=== PATIENT | female | born 1960 | race Hispanic/Latino ===

== ENCOUNTER 2016-06-03 07:33 | Emergency (ER) | payer SELFPAY ==
[~2016-06-03] VITALS: Ht 152.4 cm; Wt 61.3 kg
[~2016-06-03 07:33] MED LIST: AMOXICILLIN500 MG OR; ANTIVERT PO; AUGMENTIN500 MG OR; BENADRY2 EX; BENADRYL 50MG C50 MG OR; BENADRYL 50MG C50 MG PO; DOXYCYC MONO100 MG OR; FLAGYL500 MG OR; FLEXERIL PO; FLEXERIL10 MG PO; FLONASE SPRAY50 MCG; HYDROCO/APAP1 TA9 PO; MEDDOSEPAK OR; MEDDOSEPAK PO; MELOXICAM7.5 MG PO; MOTRIN800 MG PO; NAPROSYN500 MG OR; NAPROSYN500 MG PO; NO; NO HOME MEDS; ONDANSETRON4 MG PO; PEPCID20 MG PO; PREVACID30 M2 PO; ROBITUSSIN AC10 ML OR; TRAMADOL HCL50 MG PO; TRAMADOL HYDROC50 MG PO; ULTRAM50 M1 PO; ZOFRAN4 MG OR; [UNRECOGNIZED DRUG - REMARK]
[2016-06-03] MEDS ORDERED: PERCOCET 5/325M1 TAB PO (07:47)
[2016-06-03] MEDS ORDERED: MOTRIN800 MG PO (07:47)
[2016-06-03 08:59] VITALS: BP 148/78
== END 2016-06-03 08:59 | disposition home or self-care (01) | DRG 563 ==
LOC: ED 07:33
DX: S93.402A Sprain of unspecified ligament of left ankle, initial encounter (principal); X50.0XXA Overexertion from strenuous movement or load, initial encounter

== ENCOUNTER 2017-10-11 07:41 | Emergency (ER) | payer SELFPAY ==
[~2017-10-11] VITALS: Ht 152.4 cm; Wt 59.0 kg
[~2017-10-11 07:41] MED LIST changes: +PERCOCET 5/325M1 TAB PO
[2017-10-11 08:28] LABS: URINE BILIRUBIN - DIPSTICK NEGATIVE (NEGATIVE); URINE BLOOD DIPSTICK NEGATIVE (NEGATIVE); URINE GLUCOSE - DIPSTICK NEGATIVE (NEGATIVE); URINE KETONE NEGATIVE (NEGATIVE); URINE LEUK ESTERASE NEGATIVE (NEGATIVE); URINE PH 5.5 (4.5-8.0); URINE PROTEIN - DIPSTICK NEGATIVE (NEG-TRACE); URINE SPECIFIC GRAVITY >=1.030
[2017-10-11 08:32] LABS: HEMATOCRIT 37.5 % (37.0-47.0); HEMOGLOBIN 12.4 g/dl (12.0-16.0); IMMATURE GRANULOCYTES 0.3 % (0.0-5.0); MEAN CELL VOLUME 93.8 fL CALC (80.0-100.0); MEAN CORPUSCULAR HGB CONC 33.1 g/L CALC (32.0-36.0); NEUT# 7.35 thou/uL (2.00-7.15); RED CELL DISTRI WIDTH 13.4 % (11.5-15.5)
[2017-10-11 08:33] LABS: URINE CLARITY SL CLOUDY; URINE COLOR DK. YELLOW; URINE NITRITE - DIPSTICK POSITIVE (Negative)
[2017-10-11 08:34] LABS: URINE BACTERIA MANY hpf; URINE WBC 0-2 WBC/hpf (0-5)
[2017-10-11 08:47] LABS: ALBUMIN 4.5 g/dL (3.2-5.0); ALKALINE PHOSPHATASE 128 u/l (38-126); AMYLASE 47 u/l (30-110); ANION GAP 16 (6-22 (CALC)); BILIRUBIN, TOTAL 0.5 mg/dL (0.0-1.4); BUN 19 mg/dL (7-17); BUN/CREATININE RATIO 35 (12-20 (CALC)); CARBON DIOXIDE 24 mmol/l (22-30); CHLORIDE 110 mmol/l (95-108); CREATININE 0.5 mg/dL (0.5-1.0); GFR > 60 ML/MIN (>=60 (CALC)); GFR FOR AFR.AMER. > 60 ML/MIN (>=60 (CALC)); LIPASE 68 u/l (23-300); SGOT/AST 40 u/l (14-36); SGPT/ALT 40 u/l (9-52); SODIUM 145 mmol/l (137-146); TOTAL PROTEIN 7.9 g/dL (6.3-8.2)
[2017-10-11] MEDS ORDERED: CIPROFLOXACN500 MG PO (12:33)
[2017-10-11] MEDS ORDERED: ZOFRAN ODT4 MG PO (12:33)
[2017-10-11 13:05] VITALS: BP 166/89
== END 2017-10-11 13:05 | disposition home or self-care (01) | DRG 690 ==
LOC: ED 07:41
PROVIDERS: Emergency Medicine
DX: N39.0 Urinary tract infection, site not specified (principal); B96.20 Unspecified Escherichia coli [E. coli] as the cause of diseases classified elsewhere

== ENCOUNTER 2017-10-30 11:07 | Emergency (ER) | payer SELFPAY ==
[~2017-10-30] VITALS: Ht 152.4 cm; Wt 59.5 kg
[~2017-10-30 11:07] MED LIST changes: +CIPROFLOXACN500 MG PO; +ZOFRAN ODT4 MG PO
[2017-10-30] MEDS ORDERED: ASPERCREME LIDOCA41 TOP (11:39)
[2017-10-30] MEDS ORDERED: MOTRIN400 MG PO (11:39)
[2017-10-30] MEDS ORDERED: VOLTAREN1%GEL TOP (11:39)
[2017-10-30 12:16] VITALS: BP 125/88
== END 2017-10-30 12:21 | disposition home or self-care (01) | DRG 538 ==
LOC: ED 11:07
DX: S76.011A Strain of muscle, fascia and tendon of right hip, initial encounter (principal); M54.41 Lumbago with sciatica, right side; X58.XXXA Exposure to other specified factors, initial encounter

== ENCOUNTER 2018-11-01 02:49 | Emergency (ER) | payer SELFPAY ==
[~2018-11-01] VITALS: Ht 152.4 cm; Wt 59.1 kg
[~2018-11-01 02:49] MED LIST changes: +ASPERCREME LIDOCA41 TOP; +MOTRIN400 MG PO; +VOLTAREN1%GEL TOP
[2018-11-01 03:17] LABS: HEMATOCRIT 33.3 % (37.0-47.0); IMMATURE GRANULOCYTES 0.3 % (0.0-5.0); MEAN CELL VOLUME 92.2 fL CALC (80.0-100.0); MEAN CORPUSCULAR HGB 30.5 pG CALC (26.0-32.0); NEUT# 6.78 thou/uL (2.00-7.15); RED BLOOD COUNT 3.61 mill/uL (4.20-5.60); RED CELL DISTRI WIDTH 13.6 % (11.5-15.5)
[2018-11-01 03:27] LABS: ALBUMIN 4.3 g/dL (3.2-5.0); ALKALINE PHOSPHATASE 115 u/l (38-126); ANION GAP 14 (6-22 (CALC)); BILIRUBIN, TOTAL 0.7 mg/dL (0.0-1.4); BUN 16 mg/dL (7-17); BUN/CREATININE RATIO 29 (12-20 (CALC)); CARBON DIOXIDE 25 mmol/l (22-30); CHLORIDE 104 mmol/l (95-108); CREATININE 0.6 mg/dL (0.5-1.0); GFR > 60 ML/MIN (>=60 (CALC)); GFR FOR AFR.AMER. > 60 ML/MIN (>=60 (CALC)); POTASSIUM 3.5 mmol/l (3.5-5.1); SGOT/AST 27 u/l (14-36); SODIUM 140 mmol/l (137-146); TOTAL PROTEIN 7.9 g/dL (6.3-8.2)
[2018-11-01] MEDS ORDERED: CLARITHROMYCIN500 MG PO (04:04)
[2018-11-01 05:15] VITALS: BP 120/65
== END 2018-11-01 05:15 | disposition home or self-care (01) | DRG 203 ==
LOC: ED 02:49
PROVIDERS: Family Medicine
DX: J20.9 Acute bronchitis, unspecified (principal)

== ENCOUNTER 2019-01-19 12:26 | Emergency (ER) | payer SELFPAY ==
[~2019-01-19] VITALS: Ht 152.4 cm; Wt 59.0 kg
[~2019-01-19 12:26] MED LIST changes: +CLARITHROMYCIN500 MG PO
[2019-01-19 13:23] LABS: HCG SERUM/URINE (NEG/POS) NEGATIVE (NEGATIVE)
[2019-01-19] MEDS ORDERED: MEDDOSEPAK PO (14:07)
[2019-01-19] MEDS ORDERED: TESSALON PERLE100 MG PO (14:07)
[2019-01-19] MEDS ORDERED: VENTOLIN HFA IN (14:07)
[2019-01-19 14:15] VITALS: BP 131/74
== END 2019-01-19 14:15 | disposition home or self-care (01) | DRG 204 ==
LOC: ED 12:26
DX: R05 Cough (principal); R51 Headache

== ENCOUNTER 2019-02-13 | Emergency (ER) | payer SELFPAY ==
[~2019-02-13] MED LIST changes: +TESSALON PERLE100 MG PO; +VENTOLIN HFA IN
[2019-02-13] MEDS ORDERED: ULTRAM50 MG PO (10:44)
== END 2019-02-13 11:34 | disposition home or self-care (01) | DRG 552 ==
DX: M54.5 Low back pain (principal); S70.02XA Contusion of left hip, initial encounter; S70.01XA Contusion of right hip, initial encounter; W18.31XA Fall on same level due to stepping on an object, initial encounter; Y92.009 Unspecified place in unspecified non-institutional (private) residence as the place of occurrence of the external cause

== ENCOUNTER 2019-03-11 14:46 | Inpatient (IN) | payer SELFPAY ==
[~2019-03-11] VITALS: Ht 152.4 cm; Wt 62.0 kg
[2019-03-11] VITALS (7 sets, daily range): BP systolic 97–144; BP diastolic 58–88
[~2019-03-11 14:46] MED LIST changes: +ULTRAM50 MG PO
--- NOTE | 2019-03-11 14:50 | NUR ---
PT RECEIVED IN LOBBY LEANING TO LT SIDE, AND LT FACIAL DROOP NOTED. PT STATES SHE HAS "BEEN WEEK X3 DAYS"
--- NOTE | 2019-03-11 15:23 | NUR ---
PT UPDATED ON POC WITH INTERPRETOR. PT STATES UNDERSTANDING. PT ALERT AND ORIENTED X3. PT ALSO REPORTS SHE HAD LT SIDED CP THREE DAYS AGO. WITH ONSET OF LT SIDED WEAKNESS
--- NOTE | 2019-03-11 15:29 | NUR ---
DR FIERRO ON VIA TELENEUROLOGY TO ASSESS PT
[2019-03-11 15:39] LABS: ALBUMIN 4.7 g/dL (3.2-5.0); ALKALINE PHOSPHATASE 135 u/l (38-126); ANION GAP 15 (6-22 (CALC)); BUN 16 mg/dL (7-17); BUN/CREATININE RATIO 33 (12-20 (CALC)); CARBON DIOXIDE 23 mmol/l (22-30); CHLORIDE 104 mmol/l (95-108); CREATININE 0.5 mg/dL (0.5-1.0); ETHYL ALCOHOL 0 mg/dl (0-30); GFR > 60 ML/MIN (>=60 (CALC)); GFR FOR AFR.AMER. > 60 ML/MIN (>=60 (CALC)); POTASSIUM 3.8 mmol/l (3.5-5.1); SGOT/AST 34 u/l (14-36); SODIUM 139 mmol/l (137-146); TOTAL PROTEIN 8.4 g/dL (6.3-8.2)
[2019-03-11 15:40] LABS: BILIRUBIN, TOTAL 0.4 mg/dL (0.0-1.4)
[2019-03-11 15:43] LABS: HEMATOCRIT 38.3 % (37.0-47.0); HEMOGLOBIN 12.7 g/dl (12.0-16.0); IMMATURE GRANULOCYTES 0.3 % (0.0-5.0); MEAN CELL VOLUME 91.6 fL CALC (80.0-100.0); MEAN CORPUSCULAR HGB 30.4 pG CALC (26.0-32.0); MEAN CORPUSCULAR HGB CONC 33.2 g/L CALC (32.0-36.0); NEUT# 4.14 thou/uL (2.00-7.15); RED BLOOD COUNT 4.18 mill/uL (4.20-5.60); RED CELL DISTRI WIDTH 13.2 % (11.5-15.5)
[2019-03-11 15:52] LABS: ACT PARTIAL THROMBO TIME 27.1 SECONDS (20.0-32.5); INTERNATIONAL NORMALIZED RATIO 0.9 RATIO (0.7-1.3); PROTHROMBIN TIME 9.8 SECONDS (9.0-12.5)
--- NOTE | 2019-03-11 16:20 | NUR ---
PT SITTING UP IN BED IN NO DISTRESS.VSS. NOTED TO BE USING CELLPHONE AND HOLDON TO LT EAR WITOUT DIFFICULTY
--- NOTE | 2019-03-11 17:14 | NUR ---
pt resting typing on phone with both hands. updated on poc. speech appropriate. pt alert and oriented x4.
--- NOTE | 2019-03-11 18:30 | NUR ---
PT WITH NORMAL SWALLOW, NO DIFFICULTY, GIVEN FOOD TRAY. PT SITTING UP I BED FEEDING SELF WITHOUT DIFFICULTY.PT AWARE OF PENDING ADMIT AND AWAITING BE IN ICU
--- NOTE | 2019-03-11 19:21 | NUR ---
CALLED REPORT TO ICU , UPDATED AYAN ORR RN
--- NOTE | 2019-03-11 19:30 | NUR ---
PATIENT TO FLOOR VIA STRETCHER, WITH RN, ON MONITOR
--- NOTE | 2019-03-11 19:38 | NUR ---
PATIENT IS ALERT AND ORIENTED X3. ON ROOM AIR, NO SOB NOTED. C/O OF TIREDNESS AND WEAKNESS ESPECIALLY TO LEFT SIDE. HEAD TO TOE NURSING ASSESSMENT COMPLETED, NIH SCORE IS 4 FOR LUE AND LLE DRIFT TO BED, RUE ATAXIA, DECREASED SENSATION ON LEFT SIDE. PATIENT'S FOOD BEVERAGE SUPERVISOR ARE BILATERALLY WEAK MORE ON THE LEFT. REPORTS HEADACHE, WILL PROVIDE TYLENOL. ALL ADMISSION COMPLETED. DENIES TAKING MEDIACTIONS. RAC 20 G IV SALINE LOCKED, FLSUHES PROPERLY. POC FOR TONIGHT DISCUSSED. NKA. [place] ISLANDER SPEAKING AND UNDERSTANDS SOME VINCENTIAN AND ABLE TO SPEAK SOME VINCENTIAN BUT NOT FLUENT. 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 LIVES BY HERSELF, WOULD LIKE PNEUMONIA VACCINE. REPORTS SHE WAS HERE ABOUT TWO WEEKS AGO FROM A SYNCOPAL EPISODE FROM A DOG TRIPPING HER. LAST BM REPORTED 03/08/19, REPORTS SHE HAS A LOW APPETITE AND HAS A BM ONCE/WEEK AND THAT'S HER NORMAL. CALL LIGHT WITHIN REACH. AFEBRILE. SELF REPOSITIONS.
--- NOTE | 2019-03-11 20:18 | NUR ---
PATIENT ABLE TO SWALLOW HER MEDICATIONS WITHOUT DIFFICULTY. PASSCODE AND ICU PHONE NUMBER PROVIDED.
--- NOTE | 2019-03-11 20:52 | NUR ---
PT TALKING ON THE PHONE.
--- NOTE | 2019-03-11 21:15 | NUR ---
PT HAS VISITORS AT BEDSIDE.
--- NOTE | 2019-03-11 22:20 | NUR ---
MEND SCORED FOR R AND L HAND TO NOSE LIMB ATAXIA, DRIFT ON R AND L EXTREMITIES, DRIFT ON LLE, STILL HAS DECREASED SENSATION. PT IS DROWSY, REPORTS SHE WOULD LIKE TO SLEEP, SHE IS TIRED.
--- NOTE | 2019-03-11 22:40 | NUR ---
CALLED AND SPOKE TO BRENDEN TO ASK ABOUT STROKE PROTOCOL ORDERS AND WHAT SHE WANTED ORDERED.
--- NOTE | 2019-03-11 23:30 | NUR ---
PT IS DROWSY. HAS TO BE ASKED TO WAKE UP TO PARTICIPATE FOR TEST. MEND SCORED FOR RUE AND LUE DRIFT, DRIFT RLE, AND REPORTS HER DECREASED SENSATION IS GETTING BETTER.
[2019-03-11 23:36] LABS: ETHYL ALCOHOL 0 mg/dl (0-30)
[2019-03-12] VITALS (11 sets, daily range): BP systolic 94–152; BP diastolic 57–94
--- NOTE | 2019-03-12 00:50 | NUR ---
WHEN ATTEMPTING TO PERFORM MEND EXAM ON PT SHE REFUSES AND REPORTS SHE WOULD LIKE TO SLEEP, SHE IS ABLE TO TELL ME HER AGE AND CURRENT MONTH. SPEECH REMAINS CLEAR SINCE BASELINE, NO DROOP SINCE BASELINE.
--- NOTE | 2019-03-12 02:14 | NUR ---
PT LAYS WITH EYES CLOSED. NO ACUTE DISTRESS SHOWN. CALL LIGHT WITHIN REACH.
--- NOTE | 2019-03-12 04:23 | NUR ---
PATIENT LAYS WITH HOB 30 DEGREES, HAS BEEN RESTING WITH EYES CLOSED BUT WAS ABLE TO AWAKE MORE, SIT UP. C/O OF PAIN ON LEFT SIDE CHEST PAIN FOR WHICH SHE HAS BEEN HAVING SINCE 3 DAYS AGO. PT SPEAKS CLEARLY, NO DROOP NOTICED. ABLE TO MOVE ALL EXTREMITIES. HAS RECEIVED PHONE CALLS ON PHONE, SHE HANGS THEM UP. CALL LIGHT WITHIN REACH.
--- NOTE | 2019-03-12 05:09 | NUR ---
PT ASSITED TO BATHROOM. HAS WEAK UNSTEADY GAIT. COOPERATES FOR MEND EXAM, REPORTS HER SENSATION IS NORMAL BILATERALLY. STILL DRIFTS BILAT UE, LLE, AND NO DROOP NOTICED. ABLE TO SPEAK CLEARLY. CONVERSATES BAUT HER DAUGHTERS NOT HAVING TIME TO COME AND SEE HER.
--- NOTE | 2019-03-12 06:45 | NUR ---
RECIEVED REPORT FROM GRANT MARTIN. ASSUMED PT CARE.
[2019-03-12 07:15] LABS: URINE BILIRUBIN - DIPSTICK NEGATIVE (NEGATIVE); URINE COLOR YELLOW; URINE GLUCOSE - DIPSTICK NEGATIVE (NEGATIVE); URINE KETONE NEGATIVE (NEGATIVE); URINE UROBILINOGEN - DIPSTICK 0.2 E.U./dL (0.2)
[2019-03-12 07:19] LABS: BARBITURATES NEGATIVE (NEGATIVE); COCAINE NEGATIVE (NEGATIVE); METHADONE NEGATIVE (NEGATIVE); OXCYCODONE NEGATIVE (NEGATIVE); TETRAHYDROCANNABIONOL NEGATIVE (NEGATIVE); TRICYLIC ANTIDEPRESSANTS NEGATIVE (NEGATIVE)
[2019-03-12 07:22] LABS: URINE BACTERIA MANY hpf
[2019-03-12 07:25] LABS: URINE BLOOD DIPSTICK NEGATIVE (NEGATIVE); URINE LEUK ESTERASE NEGATIVE (NEGATIVE); URINE NITRITE - DIPSTICK POSITIVE (Negative); URINE PROTEIN - DIPSTICK NEGATIVE (NEG-TRACE)
--- NOTE | 2019-03-12 07:30 | NUR ---
DIETARY ON UNIT, BREAKFAST TRAY SET UP.
--- NOTE | 2019-03-12 08:30 | NUR ---
PT AT BEDSIDE FOR EVAL.
--- NOTE | 2019-03-12 08:45 | NUR ---
OT AT [facility] FOR EVAL.
--- NOTE | 2019-03-12 09:00 | NUR ---
CONSULT PLACED FOR CM, FOR FINANCIAL CONCERNS AT PT REQUEST.
--- NOTE | 2019-03-12 09:15 | NUR ---
FAMILY ARRIVED AT BEDSIDE.
--- NOTE | 2019-03-12 09:18 | NUR ---
BRI IN MRI NOTIFY THAT MRI MACHINE IS DOWN, MRI'S ARE UNAVAILABLE AT THIS TIME. DR. SONJA LEMUS.
--- NOTE | 2019-03-12 09:45 | NUR ---
DR. CASILLAS AT BEDSIDE FOR ASSESSMENT AND TO DISCUSS PLAN OF CARE, NEW ORDERS RECIEVED. FAMILY REMAINS AT BEDSIDE.
--- NOTE | 2019-03-12 10:00 | NUR ---
PT ASSISTED TO BATHROOM, SLOW STEADY GAIT, SBA.
--- NOTE | 2019-03-12 10:45 | NUR ---
US HERE FOR ECHO.
--- NOTE | 2019-03-12 11:15 | NUR ---
LAWSON FROM BUSINESS OFFICE AT FOR FINANCIAL ASSISTANCE AND ASHLEY NIX AT BEDSIDE.
--- NOTE | 2019-03-12 11:33 | NUR ---
PHARMACY AT BEDSIDE FOR MEDICATION CONSULTATION.
--- NOTE | 2019-03-12 12:45 | NUR ---
PT OFF UNIT TO MRI VIA WC WITH VOLUNTEER.
--- NOTE | 2019-03-12 13:18 | NUR ---
AL FROM MRI CALLED PT REFUSING MRI.
--- NOTE | 2019-03-12 13:24 | NUR ---
PT BACK ON UNIT FROM MRI.
--- NOTE | 2019-03-12 13:33 | NUR ---
PT STATED "SHE WAS NOT GOING IN THAT MACHINE, F NO" IM GOING TO SLEEP.
--- NOTE | 2019-03-12 14:11 | NUR ---
PT RESTING IN BED WITH EYES CLOSED, CALL LIGHT IN REACH. WILL MONITOR.
--- NOTE | 2019-03-12 15:15 | NUR ---
UPON ENTERING PT ROOM PT WAS ON PERSONAL CELL PHONE CUSSING, AFTER PT WAS OFF PHONE, SCHEDULED MEDICATION OFFERED AND REFUSED. CALL LIGHT IN REACH. WILL MONITOR.
[2019-03-12] MEDS ORDERED: ASPIRIN CHEWABL81 MG PO (15:34)
[2019-03-12] MEDS ORDERED: ATORVASTATIN CA40 MG PO (15:34)
--- NOTE | 2019-03-12 15:50 | NUR ---
IV site discontinued, cath intact. No edema , no redness, voices no discomfort.
--- NOTE | 2019-03-12 16:16 | NUR ---
ATTEMPTED TO GO IN TO HELP PT GET DRESSED FOR DISCHARGE, PT TOLD BOTTLE LABELER THAT THIS TAKE UP OPERATOR WAS DISCRIMANATORY AND WAS NOT TO COME IN ROOM. PRIMING POWDER PREMIX BLENDER GRANT PADILLA NOTIFIED, CARLOS. RN WENT IN TO EXPLAIN DISCHARGE INSTRUCTIONS.
--- NOTE | 2019-03-12 16:26 | NUR ---
Discharge instructions given. Patient verbalizes understanding of same. Discharged in stable condition via Wheelchair to Home with family. All belongings sent with pt.
--- NOTE | 2019-03-14 14:30 | NUR ---
URINE CULTURE RESULTS GIVEN TO KYARA ACEVEDO, PATIENT SEEN FOR CVA. NO NEW ORDERS AT THIS TIME.
--- NOTE | 2019-03-16 11:40 | NUR ---
Attempted to call pt upon urine culture results to check and see how she was feeling. No success so I left a message to [employer] back. INTERPRETATIVE DANCER that was listed in pts profile is no longer at that location and pt has not been seen in about 2 yrs there.
== END 2019-03-12 16:26 | disposition home or self-care (01) | DRG 65 ==
LOC: ED 14:46 → ED-I 17:01 → ED 17:20 → ICU 17:21
PROVIDERS: ADMIT Internal Medicine; ATTEND Internal Medicine
DX: I63.9 Cerebral infarction, unspecified (principal); G81.94 Hemiplegia, unspecified affecting left nondominant side; R29.810 Facial weakness; R29.707 NIHSS score 7
CPT/HCPCS: J1650; Q9967

== ENCOUNTER → 2020-10-26 | Emergency (ER) | payer SELFPAY ==
[~2020-10-26] VITALS: Ht 152.4 cm; Wt 78.0 kg
[~2020-10-26] MED LIST changes: +ASPIRIN CHEWABL81 MG PO; +ATORVASTATIN CA40 MG PO; +DECADRON6 MG PO; +IBUPROFEN600 MG PO
[2020-10-26 18:59] VITALS: BP 118/75
== END | disposition home or self-care (01) | DRG 552 ==
LOC: ED 15:10
DX: M54.5 Low back pain (principal)

== ENCOUNTER 2020-11-15 10:49 | Emergency (ER) | payer SELFPAY ==
[~2020-11-15] VITALS: Ht 152.4 cm; Wt 59.1 kg
[2020-11-15] MEDS ORDERED: MOBIC7.5 M1 PO (13:49)
[2020-11-15] MEDS ORDERED: FLEXERIL5 M1 PO (13:49)
[2020-11-15 14:18] VITALS: BP 142/67
== END 2020-11-15 14:30 | disposition home or self-care (01) | DRG 552 ==
LOC: ED 10:49
DX: M54.5 Low back pain (principal)

== ENCOUNTER 2021-01-04 23:21 | Emergency (ER) | payer SELFPAY ==
[~2021-01-04] VITALS: Ht 152.4 cm; Wt 60.0 kg
[~2021-01-04 23:21] MED LIST changes: +FLEXERIL5 M1 PO; +MOBIC7.5 M1 PO
[2021-01-05 00:18] LABS: HEMATOCRIT 38.3 % (37.0-47.0); HEMOGLOBIN 12.3 g/dl (12.0-16.0); IMMATURE GRANULOCYTES 0.8 % (0.0-5.0); MEAN CORPUSCULAR HGB 31.7 pG CALC (26.0-32.0); MEAN CORPUSCULAR HGB CONC 32.1 g/dL CAL (32.0-36.0); NEUT# 8.57 thou/uL (2.00-7.15); RED BLOOD COUNT 3.88 mill/uL (4.20-5.60)
[2021-01-05 00:22] LABS: ALBUMIN 4.1 g/dL (3.2-5.0); ALKALINE PHOSPHATASE 129 u/l (38-126); AMYLASE 66 u/l (30-110); ANION GAP 12 (6-22 (CALC)); BUN 23 mg/dL (7-17); BUN/CREATININE RATIO 44 (12-20 (CALC)); CARBON DIOXIDE 27 mmol/l (22-30); CHLORIDE 106 mmol/l (95-108); CREATININE 0.5 mg/dL (0.5-1.0); GFR > 60 ML/MIN (>=60 (CALC)); GFR FOR AFR.AMER. > 60 ML/MIN (>=60 (CALC)); LIPASE 79 u/l (23-300); SGOT/AST 35 u/l (14-36); SODIUM 141 mmol/l (137-146); TOTAL PROTEIN 7.5 g/dL (6.3-8.2)
[2021-01-05 00:26] LABS: MEAN CELL VOLUME 98.7 fL CALC (80.0-100.0)
[2021-01-05 00:33] LABS: BILIRUBIN, TOTAL 0.6 mg/dL (0.0-1.4)
[2021-01-05 01:54] LABS: URINE BILIRUBIN - DIPSTICK NEGATIVE (NEGATIVE); URINE BLOOD DIPSTICK NEGATIVE (NEGATIVE); URINE COLOR YELLOW; URINE GLUCOSE - DIPSTICK NEGATIVE (NEGATIVE); URINE KETONE NEGATIVE (NEGATIVE); URINE LEUK ESTERASE NEGATIVE (NEGATIVE); URINE PH 7.5 (4.5-8.0); URINE PROTEIN - DIPSTICK NEGATIVE (NEG-TRACE); URINE UROBILINOGEN - DIPSTICK 0.2 E.U./dL (0.2)
[2021-01-05 01:57] LABS: URINE NITRITE - DIPSTICK NEGATIVE (Negative)
[2021-01-05] MEDS ORDERED: PROMETHAZINE HY25 M1 PO (02:14)
[2021-01-05 02:20] VITALS: BP 131/71
== END 2021-01-05 02:15 | disposition home or self-care (01) | DRG 392 ==
LOC: ED 23:21
PROVIDERS: Family Medicine
DX: K52.9 Noninfective gastroenteritis and colitis, unspecified (principal)
CPT/HCPCS: Q9967

== ENCOUNTER 2021-11-30 15:15 | Observation (INO) | payer SELFPAY ==
[~2021-11-30] VITALS: Ht 152.4 cm; Wt 62.0 kg
[~2021-11-30 15:15] MED LIST changes: +PROMETHAZINE HY25 M1 PO
--- NOTE | 2021-11-30 15:20 | NUR ---
PT TO ROOM VIA WC
[2021-11-30 15:44] LABS: HEMOGLOBIN 12.4 g/dl (12.0-16.0); MEAN CELL VOLUME 96.7 fL CALC (80.0-100.0); MEAN CORPUSCULAR HGB 31.6 pG CALC (26.0-32.0); MEAN CORPUSCULAR HGB CONC 32.6 g/dL CAL (32.0-36.0); NEUT# 3.26 thou/uL (2.00-7.15); RED BLOOD COUNT 3.93 mill/uL (4.20-5.60); RED CELL DISTRI WIDTH 13.3 % (11.5-15.5)
[2021-11-30 15:57] LABS: ALBUMIN 4.2 g/dL (3.2-5.0); ALKALINE PHOSPHATASE 146 u/l (38-126); ANION GAP 13 (6-22 (CALC)); BILIRUBIN, TOTAL 0.4 mg/dL (0.0-1.4); BUN 17 mg/dL (7-17); BUN/CREATININE RATIO 31 (12-20 (CALC)); CARBON DIOXIDE 24 mmol/l (22-30); CHLORIDE 109 mmol/l (95-108); CREATININE 0.5 mg/dL (0.5-1.0); GFR FOR AFR.AMER. > 60 ML/MIN (>=60 (CALC)); GFR OTHER RACES > 60 ML/MIN (>=60 (CALC)); POTASSIUM 4.1 mmol/l (3.5-5.1); SGOT/AST 43 u/l (14-36); SODIUM 143 mmol/l (137-146); TOTAL PROTEIN 7.6 g/dL (6.3-8.2)
[2021-11-30 16:04] LABS: INTERNATIONAL NORMALIZED RATIO 0.9 RATIO (0.7-1.3); PROTHROMBIN TIME 9.2 SECONDS (9.0-12.5)
[2021-11-30 16:10] VITALS: BP 178/91
[2021-11-30 16:16] VITALS: BP 178/80
--- NOTE | 2021-11-30 16:20 | NUR ---
Reassessment of patient completed. No distress noted.
[2021-11-30 16:46] VITALS: BP 178/154
--- NOTE | 2021-11-30 17:20 | NUR ---
4Reassessment of patient completed. No distress noted.
--- NOTE | 2021-11-30 18:21 | NUR ---
Reassessment of patient completed. No distress noted.
[2021-11-30 18:35] VITALS: BP 177/104
[2021-11-30 18:44] VITALS: BP 167/96
--- NOTE | 2021-11-30 18:59 | NUR ---
ESCORTED PATIENT TO 279 AND GAVE REPORT BEDSIDE TO JOANNE. VERBALIZED UNDERSTANDING. PATIENT ORIENTED AND ASSISTED INTO BED. DECLINES FURTHER NEEDS AT THIS TIME.
[2021-11-30 23:52] VITALS: BP 119/71
[2021-12-01 04:30] VITALS: BP 148/85
[2021-12-01 05:27] LABS: HEMATOCRIT 36.6 % (37.0-47.0); HEMOGLOBIN 11.7 g/dl (12.0-16.0); IMMATURE GRANULOCYTES 0.2 % (0.0-5.0); MEAN CELL VOLUME 98.9 fL CALC (80.0-100.0); MEAN CORPUSCULAR HGB 31.6 pG CALC (26.0-32.0); NEUT# 2.45 thou/uL (2.00-7.15); RED BLOOD COUNT 3.7 mill/uL (4.20-5.60); RED CELL DISTRI WIDTH 13.5 % (11.5-15.5)
[2021-12-01 05:39] LABS: ALBUMIN 3.5 g/dL (3.2-5.0); ALKALINE PHOSPHATASE 113 u/l (38-126); ANION GAP 11 (6-22 (CALC)); BILIRUBIN, TOTAL 0.4 mg/dL (0.0-1.4); BUN 16 mg/dL (7-17); BUN/CREATININE RATIO 34 (12-20 (CALC)); CARBON DIOXIDE 25 mmol/l (22-30); CHLORIDE 108 mmol/l (95-108); CREATININE 0.5 mg/dL (0.5-1.0); GFR FOR AFR.AMER. > 60 ML/MIN (>=60 (CALC)); GFR OTHER RACES > 60 ML/MIN (>=60 (CALC)); POTASSIUM 4.1 mmol/l (3.5-5.1); SGOT/AST 37 u/l (14-36); SODIUM 140 mmol/l (137-146); TOTAL PROTEIN 6.3 g/dL (6.3-8.2)
[2021-12-01 06:06] VITALS: BP 148/85
[2021-12-01 06:59] VITALS: BP 126/78
--- NOTE | 2021-12-01 08:29 | NUR ---
PT REFUSING MRI
[2021-12-01 10:31] VITALS: BP 144/72
[2021-12-01 10:55] LABS: URINE BILIRUBIN - DIPSTICK NEGATIVE (NEGATIVE); URINE BLOOD DIPSTICK NEGATIVE (NEGATIVE); URINE COLOR YELLOW; URINE GLUCOSE - DIPSTICK NEGATIVE (NEGATIVE); URINE KETONE NEGATIVE (NEGATIVE); URINE LEUK ESTERASE TRACE (NEGATIVE); URINE NITRITE - DIPSTICK POSITIVE (Negative); URINE PH 6.5 (4.5-8.0); URINE PROTEIN - DIPSTICK NEGATIVE (NEG-TRACE); URINE UROBILINOGEN - DIPSTICK 0.2 E.U./dL (0.2)
[2021-12-01 10:57] LABS: URINE BACTERIA MANY hpf; URINE EPITHELIAL CELLS FEW EPI/hpf (0-FEW)
--- NOTE | 2021-12-01 11:58 | NUR ---
PT LEFT HOSPITAL AGAINST MEDICAL ADVICE. IV DCED. TELE DCED.
== END 2021-12-01 11:55 | disposition left against medical advice (07) | DRG 93 ==
LOC: ED 15:15 → ED-I 17:00 → MS2 17:23 → ED 17:23 → MS2 12-01 11:55
PROVIDERS: Nurse Practitioner; ADMIT Internal Medicine; ATTEND Internal Medicine
DX: R20.2 Paresthesia of skin (principal); R53.1 Weakness; H53.9 Unspecified visual disturbance; F40.240 Claustrophobia; Z20.822 Contact with and (suspected) exposure to COVID-19
CPT/HCPCS: G0378; Q9967

== ENCOUNTER 2022-04-21 09:43 | Emergency (ER) | payer SELFPAY ==
[2022-04-21] VITALS (10 sets, daily range): BP systolic 139–190; BP diastolic 71–97
[~2022-04-21] VITALS: Ht 152.4 cm; Wt 61.4 kg
[2022-04-21 11:59] LABS: BASO% 0.2 % (0-3); EOS% 1.6 % (0-8); HEMATOCRIT 35.2 % (37.0-47.0); HEMOGLOBIN 11.3 g/dl (12.0-16.0); MEAN CELL VOLUME 95.9 fL CALC (80.0-100.0); MEAN CORPUSCULAR HGB 30.8 pG CALC (26.0-32.0); MEAN CORPUSCULAR HGB CONC 32.1 g/dL CAL (32.0-36.0); MONO% 7.6 % (2-13); NEUT# 3.35 thou/uL (2.00-7.15); NEUT% 52.6 % (42-76); RED BLOOD COUNT 3.67 mill/uL (4.20-5.60); RED CELL DISTRI WIDTH 12.9 % (11.5-15.5)
[2022-04-21 12:25] LABS: ALKALINE PHOSPHATASE 124 u/l (38-126); ANION GAP 9 (6-22 (CALC)); BILIRUBIN, TOTAL 0.3 mg/dL (0.02-1.3); BUN 20 mg/dL (8-23); BUN/CREATININE RATIO 42 (12-20 (CALC)); CARBON DIOXIDE 27 mmol/l (22-30); CHLORIDE 109 mmol/l (95-108); CREATININE 0.5 mg/dL (0.5-1.0); GFR FOR AFR.AMER. > 60 ML/MIN (>=60 (CALC)); GFR OTHER RACES > 60 ML/MIN (>=60 (CALC)); POTASSIUM 3.6 mmol/l (3.5-5.1); SGOT/AST 39 u/l (9-36); SODIUM 142 mmol/l (137-146)
[2022-04-21 12:26] LABS: ALBUMIN 4.3 g/dL (3.2-5.0); TOTAL PROTEIN 7.6 g/dL (6.3-8.2)
[2022-04-21 13:47] LABS: URINE BILIRUBIN - DIPSTICK NEGATIVE (NEGATIVE); URINE BLOOD DIPSTICK NEGATIVE (NEGATIVE); URINE COLOR YELLOW; URINE GLUCOSE - DIPSTICK NEGATIVE (NEGATIVE); URINE KETONE NEGATIVE (NEGATIVE); URINE LEUK ESTERASE NEGATIVE (NEGATIVE); URINE PROTEIN - DIPSTICK NEGATIVE (NEG-TRACE); URINE SPECIFIC GRAVITY 1.025; URINE UROBILINOGEN - DIPSTICK 0.2 E.U./dL (0.2)
[2022-04-21 13:51] LABS: URINE NITRITE - DIPSTICK NEGATIVE (Negative)
[2022-04-21] MEDS ORDERED: METHOCARBAMOL500 MG PO (14:25)
[2022-04-21] MEDS ORDERED: NAPROXEN500 MG PO (14:25)
== END 2022-04-21 15:47 | disposition home or self-care (01) | DRG 552 ==
LOC: ED 09:43
PROVIDERS: Nurse Practitioner
DX: M43.6 Torticollis (principal)

== ENCOUNTER 2022-08-13 19:50 | Emergency (ER) | payer SELFPAY ==
[~2022-08-13] VITALS: Ht 152.4 cm; Wt 58.0 kg
[~2022-08-13 19:50] MED LIST changes: +METHOCARBAMOL500 MG PO; +NAPROXEN500 MG PO
[2022-08-13 22:02] VITALS: BP 173/83
== END 2022-08-13 22:02 | disposition home or self-care (01) | DRG 880 ==
LOC: ED 19:50
DX: F41.0 Panic disorder [episodic paroxysmal anxiety] (principal); Z60.5 Target of (perceived) adverse discrimination and persecution

== ENCOUNTER 2023-03-05 10:49 | Observation (INO) | payer SELFPAY ==
[2023-03-05] VITALS (24 sets, daily range): BP systolic 119–186; BP diastolic 58–131
[~2023-03-05] VITALS: Ht 165.1 cm; Wt 56.6 kg
[~2023-03-05 10:49] MED LIST changes: +BACTRIM DS1 TAB PO; +IRON325 M1 PO; +KEFLEX500 MG PO; +VITAMIN C1000 MG PO
[2023-03-05 11:25] LABS: URINE BILIRUBIN - DIPSTICK Negative (NEGATIVE); URINE BLOOD DIPSTICK Negative (NEGATIVE); URINE GLUCOSE - DIPSTICK Negative (NEGATIVE); URINE KETONE Negative (NEGATIVE); URINE NITRITE - DIPSTICK Negative (Negative); URINE PH 5.5 (4.5-8.0); URINE PROTEIN - DIPSTICK Negative (NEG-TRACE); URINE SPECIFIC GRAVITY 1.025; URINE UROBILINOGEN - DIPSTICK 0.2 E.U./dL (0.2)
[2023-03-05 11:26] LABS: BASO% 0.3 % (0-3); EOS% 2.3 % (0-8); IMMATURE GRANULOCYTES 0.1 % (0.0-5.0); LYMPH% 38.1 % (15-41); MEAN CORPUSCULAR HGB 29.3 pG CALC (26.0-32.0); MEAN CORPUSCULAR HGB CONC 31.6 g/dL CAL (32.0-36.0); MONO% 8.7 % (2-13); NEUT# 3.52 thou/uL (2.00-7.15); NEUT% 50.5 % (42-76); RED BLOOD COUNT 3.82 mill/uL (4.20-5.60); RED CELL DISTRI WIDTH 13.3 % (11.5-15.5)
[2023-03-05 11:30] LABS: URINE COLOR Yellow; URINE LEUK ESTERASE Small (NEGATIVE)
[2023-03-05 11:40] LABS: ALBUMIN 4.3 g/dL (3.2-5.0); ALKALINE PHOSPHATASE 117 u/l (38-126); ANION GAP 9 (6-22 (CALC)); BILIRUBIN, TOTAL 0.3 mg/dL (0.02-1.3); BUN 17 mg/dL (8-23); BUN/CREATININE RATIO 36 (12-20 (CALC)); CARBON DIOXIDE 26 mmol/l (22-30); CHLORIDE 109 mmol/l (95-108); CREATININE 0.5 mg/dL (0.5-1.0); GFR FOR AFR.AMER. > 60 ML/MIN (>=60 (CALC)); GFR OTHER RACES > 60 ML/MIN (>=60 (CALC)); HDL CHOLESTEROL 38 mg/dL (39.0-59.0); POTASSIUM 4.3 mmol/l (3.5-5.1); SGOT/AST 32 u/l (9-36); SODIUM 140 mmol/l (137-146); TOTAL CHOLESTEROL 190 mg/dl (0-199); TOTAL PROTEIN 7.9 g/dL (6.3-8.2); TOTAL TRIGLYCERIDES 419 mg/dl (0-149)
[2023-03-05 11:44] LABS: HEMATOCRIT 35.4 % (37.0-47.0); HEMOGLOBIN 11.2 g/dl (12.0-16.0); MEAN CELL VOLUME 92.7 fL CALC (80.0-100.0)
[2023-03-05 11:51] LABS: URINE BACTERIA FEW hpf; URINE RBC 0-2 RBC/hpf (0-5); URINE SQUAMOUS EPITHELIAL CELL FEW EPI/hpf (0-FEW)
[2023-03-05 12:00] LABS: PROTHROMBIN TIME 9.8 SECONDS (9.0-12.5)
[2023-03-06 00:19] VITALS: BP 108/51
[2023-03-06 04:21] VITALS: BP 135/66
[2023-03-06 06:56] VITALS: BP 137/71
[2023-03-06 09:09] LABS: BASO% 0.1 % (0-3); HEMATOCRIT 36.5 % (37.0-47.0); HEMOGLOBIN 11.4 g/dl (12.0-16.0); IMMATURE GRANULOCYTES 0.6 % (0.0-5.0); LYMPH% 14.1 % (15-41); MEAN CELL VOLUME 92.4 fL CALC (80.0-100.0); MEAN CORPUSCULAR HGB 28.9 pG CALC (26.0-32.0); MEAN CORPUSCULAR HGB CONC 31.2 g/dL CAL (32.0-36.0); MONO% 5.1 % (2-13); NEUT# 11.73 thou/uL (2.00-7.15); NEUT% 80.1 % (42-76); RED BLOOD COUNT 3.95 mill/uL (4.20-5.60); RED CELL DISTRI WIDTH 13.3 % (11.5-15.5)
[2023-03-06 09:39] LABS: ANION GAP 10 (6-22 (CALC)); BUN 18 mg/dL (8-23); BUN/CREATININE RATIO 40 (12-20 (CALC)); CALCULATED LDLCHOLESTEROL 118 mg/dL (62-129 (CALC)); CARBON DIOXIDE 23 mmol/l (22-30); CHLORIDE 110 mmol/l (95-108); CHOLESTEROL HDL RATIO 4.6 (<4.4 (CALC)); CREATININE 0.4 mg/dL (0.5-1.0); GFR FOR AFR.AMER. > 60 ML/MIN (>=60 (CALC)); GFR OTHER RACES > 60 ML/MIN (>=60 (CALC)); HDL CHOLESTEROL 43 mg/dL (39.0-59.0); POTASSIUM 3.9 mmol/l (3.5-5.1); SODIUM 139 mmol/l (137-146); TOTAL CHOLESTEROL 197 mg/dl (0-199); TOTAL TRIGLYCERIDES 182 mg/dl (0-149); VLDL CHOLESTROL 36 mg/dl (1-41 (CALC))
[2023-03-06 10:13] LABS: C-REACTIVE PROTEIN < 0.5 mg/dL (0-0.9)
[2023-03-06 12:08] VITALS: BP 138/67
[2023-03-06 15:45] VITALS: BP 128/67
[2023-03-06 19:25] VITALS: BP 127/72
[2023-03-07] VITALS (7 sets, daily range): BP systolic 116–152; BP diastolic 54–71
[2023-03-07 04:50] LABS: BASO% 0.3 % (0-3); EOS% 1.1 % (0-8); HEMOGLOBIN 9.7 g/dl (12.0-16.0); LYMPH% 45.1 % (15-41); MEAN CELL VOLUME 94.1 fL CALC (80.0-100.0); MEAN CORPUSCULAR HGB 29.9 pG CALC (26.0-32.0); MEAN CORPUSCULAR HGB CONC 31.8 g/dL CAL (32.0-36.0); MONO% 6.6 % (2-13); NEUT# 3.42 thou/uL (2.00-7.15); NEUT% 46.9 % (42-76); RED BLOOD COUNT 3.24 mill/uL (4.20-5.60); RED CELL DISTRI WIDTH 13.5 % (11.5-15.5)
[2023-03-07 04:58] LABS: HEMATOCRIT 30.5 % (37.0-47.0)
[2023-03-07 05:08] LABS: ALKALINE PHOSPHATASE 106 u/l (38-126); ANION GAP 5 (6-22 (CALC)); BILIRUBIN, TOTAL 0.2 mg/dL (0.02-1.3); BUN 18 mg/dL (8-23); BUN/CREATININE RATIO 33 (12-20 (CALC)); CARBON DIOXIDE 27 mmol/l (22-30); CHLORIDE 113 mmol/l (95-108); CREATININE 0.5 mg/dL (0.5-1.0); GFR FOR AFR.AMER. > 60 ML/MIN (>=60 (CALC)); GFR OTHER RACES > 60 ML/MIN (>=60 (CALC)); MAGNESIUM 1.9 mg/dL (1.6-2.3); POTASSIUM 4.3 mmol/l (3.5-5.1); SGOT/AST 21 u/l (9-36); SODIUM 141 mmol/l (137-146)
[2023-03-07 05:09] LABS: TOTAL PROTEIN 5.8 g/dL (6.3-8.2)
[2023-03-08 02:08] VITALS: BP 139/70
[2023-03-08 04:46] VITALS: BP 120/53
[2023-03-08 06:30] VITALS: BP 136/62
[2023-03-08 06:53] LABS: BASO% 0.3 % (0-3); EOS% 2.9 % (0-8); HEMATOCRIT 33.5 % (37.0-47.0); HEMOGLOBIN 10.6 g/dl (12.0-16.0); LYMPH% 43.8 % (15-41); MEAN CELL VOLUME 92.8 fL CALC (80.0-100.0); MEAN CORPUSCULAR HGB 29.4 pG CALC (26.0-32.0); MEAN CORPUSCULAR HGB CONC 31.6 g/dL CAL (32.0-36.0); MONO% 7.8 % (2-13); NEUT# 2.67 thou/uL (2.00-7.15); NEUT% 45.2 % (42-76); RED BLOOD COUNT 3.61 mill/uL (4.20-5.60); RED CELL DISTRI WIDTH 13.6 % (11.5-15.5)
[2023-03-08 07:06] LABS: ALBUMIN 3.6 g/dL (3.2-5.0); ALKALINE PHOSPHATASE 95 u/l (38-126); ANION GAP 7 (6-22 (CALC)); BUN 12 mg/dL (8-23); BUN/CREATININE RATIO 24 (12-20 (CALC)); CARBON DIOXIDE 28 mmol/l (22-30); CHLORIDE 109 mmol/l (95-108); CREATININE 0.5 mg/dL (0.5-1.0); GFR FOR AFR.AMER. > 60 ML/MIN (>=60 (CALC)); GFR OTHER RACES > 60 ML/MIN (>=60 (CALC)); MAGNESIUM 2.1 mg/dL (1.6-2.3); SGOT/AST 26 u/l (9-36); SODIUM 140 mmol/l (137-146); TOTAL PROTEIN 6.6 g/dL (6.3-8.2)
[2023-03-08 07:07] LABS: BILIRUBIN, TOTAL 0.3 mg/dL (0.02-1.3)
[2023-03-08] MEDS ORDERED: ATORVASTATIN CA40 MG PO (08:54)
[2023-03-08] MEDS ORDERED: ASPIRIN81 MG PO (08:54)
[2023-03-08] MEDS ORDERED: OMNICEF300 M1 PO (08:55)
[2023-03-08] MEDS ORDERED: PLAVIX75 MG PO (08:55)
[2023-03-08 10:39] VITALS: BP 154/67
== END 2023-03-08 13:12 | disposition home or self-care (01) | DRG 65 ==
LOC: ED 10:49 → ED-I 14:52 → ED 15:06 → MS2 15:07
PROVIDERS: Family Medicine; Nurse Practitioner Family; ADMIT Student in an Organized Health Care Education/Training Program; ATTEND Student in an Organized Health Care Education/Training Program
DX: I63.9 Cerebral infarction, unspecified (principal); G81.91 Hemiplegia, unspecified affecting right dominant side; N30.00 Acute cystitis without hematuria; R47.81 Slurred speech; R42 Dizziness and giddiness; R20.0 Anesthesia of skin; R29.704 NIHSS score 4
CPT/HCPCS: A9579; G0378; J1650; Q9967

== ENCOUNTER 2023-08-13 10:05 | Emergency (ER) | payer SELFPAY ==
[2023-08-13] VITALS (13 sets, daily range): BP systolic 134–178; BP diastolic 69–89
[~2023-08-13] VITALS: Ht 165.1 cm; Wt 54.4 kg
[~2023-08-13 10:05] MED LIST changes: +ASPIRIN81 MG PO; +OMNICEF300 M1 PO; +PLAVIX75 MG PO
[2023-08-13] MEDS ORDERED: SODIUM CHLORIDE 0.9% 1,000 ML IV ONE (10:20)
[2023-08-13 10:38] LABS: BASO% 0.2 % (0-3); EOS% 3.6 % (0-8); HEMATOCRIT 35.1 % (37.0-47.0); HEMOGLOBIN 11.1 g/dl (12.0-16.0); LYMPH% 41.7 % (15-41); MEAN CELL VOLUME 91.4 fL CALC (80.0-100.0); MEAN CORPUSCULAR HGB 28.9 pG CALC (26.0-32.0); MEAN CORPUSCULAR HGB CONC 31.6 g/dL CAL (32.0-36.0); MONO% 10.9 % (2-13); NEUT# 1.79 thou/uL (2.00-7.15); NEUT% 43.6 % (42-76); RED BLOOD COUNT 3.84 mill/uL (4.20-5.60); RED CELL DISTRI WIDTH 14.5 % (11.5-15.5)
[2023-08-13 10:52] LABS: ALBUMIN 4.2 g/dL (3.2-5.0); ALKALINE PHOSPHATASE 102 u/l (38-126); BUN 23 mg/dL (8-23); BUN/CREATININE RATIO 44 (12-20 (CALC)); CARBON DIOXIDE 27 mmol/l (22-30); CHLORIDE 111 mmol/l (95-108); CREATININE 0.5 mg/dL (0.5-1.0); ESTIMATED GFR 106 ML/MIN (>=90 (CALC)); SGOT/AST 38 u/l (9-36); SODIUM 141 mmol/l (137-146); TOTAL PROTEIN 7.9 g/dL (6.3-8.2)
[2023-08-13 10:55] LABS: ANION GAP 6 (6-22 (CALC)); BILIRUBIN, TOTAL 0.6 mg/dL (0.02-1.3); POTASSIUM 3.1 mmol/l (3.5-5.1)
[2023-08-13 11:13] LABS: URINE BLOOD DIPSTICK Trace-intact (NEGATIVE); URINE GLUCOSE - DIPSTICK Negative (NEGATIVE); URINE KETONE Negative (NEGATIVE); URINE LEUK ESTERASE Trace (NEGATIVE); URINE PH 5.5 (4.5-8.0); URINE PROTEIN - DIPSTICK 30 mg/dL (NEG-TRACE); URINE SPECIFIC GRAVITY >=1.030
[2023-08-13 11:18] LABS: URINE COLOR Dark yellow; URINE NITRITE - DIPSTICK Positive (Negative)
[2023-08-13 11:21] LABS: URINE BACTERIA MANY hpf; URINE RBC 0-2 RBC/hpf (0-5)
[2023-08-13 11:22] LABS: URINE MUCUS FEW hpf (NONE-FEW); URINE SQUAMOUS EPITHELIAL CELL FEW EPI/hpf (0-FEW)
[2023-08-13] MEDS ORDERED: POTASSIUM CHLORIDE 20 MEQ/TAB PO ONE (12:10)
[2023-08-13] MEDS ORDERED: PAXLOVID PO (12:13)
[2023-08-13] MEDS ORDERED: OMNICEF300 MG PO (12:13)
[2023-08-13] MEDS ORDERED: K-TAB20 MEQ PO (12:14)
== END 2023-08-13 12:53 | disposition home or self-care (01) | DRG 178 ==
LOC: ED 10:05
PROVIDERS: Family Medicine
DX: U07.1 COVID-19 (principal); N39.0 Urinary tract infection, site not specified; B96.20 Unspecified Escherichia coli [E. coli] as the cause of diseases classified elsewhere; E87.6 Hypokalemia

== ENCOUNTER 2024-01-14 16:10 | Emergency (ER) | payer SELFPAY ==
[~2024-01-14] VITALS: Ht 165.1 cm; Wt 48.0 kg
[~2024-01-14 16:10] MED LIST changes: +K-TAB20 MEQ PO; +OMNICEF300 MG PO; +PAXLOVID PO
[2024-01-14] MEDS ORDERED: ACETAMINOPHEN 500 MG TAB PO ONE (16:25)
[2024-01-14] MEDS ORDERED: SODIUM CHLORIDE 0.9% 1,000 ML IV ONE (16:25)
[2024-01-14 17:20] LABS: URINE BILIRUBIN - DIPSTICK Negative (NEGATIVE); URINE BLOOD DIPSTICK Trace-lysed (NEGATIVE); URINE GLUCOSE - DIPSTICK Negative (NEGATIVE); URINE KETONE Negative (NEGATIVE); URINE LEUK ESTERASE Negative (NEGATIVE); URINE NITRITE - DIPSTICK Negative (Negative); URINE PH 5.5 (4.5-8.0); URINE PROTEIN - DIPSTICK 30 mg/dL (NEG-TRACE); URINE SPECIFIC GRAVITY >=1.030
[2024-01-14 17:21] LABS: BASO% 0.1 % (0-3); EOS% 1.9 % (0-8); HEMATOCRIT 35.6 % (37.0-47.0); HEMOGLOBIN 11.4 g/dl (12.0-16.0); IMMATURE GRANULOCYTES 0.1 % (0.0-5.0); LYMPH% 14.6 % (15-41); MEAN CELL VOLUME 92.7 fL CALC (80.0-100.0); MEAN CORPUSCULAR HGB 29.7 pG CALC (26.0-32.0); MONO% 8.1 % (2-13); NEUT# 6.04 thou/uL (2.00-7.15); NEUT% 75.2 % (42-76); RED BLOOD COUNT 3.84 mill/uL (4.20-5.60); RED CELL DISTRI WIDTH 14.4 % (11.5-15.5)
[2024-01-14 17:24] LABS: URINE COLOR Yellow
[2024-01-14 17:25] LABS: URINE RBC 0-2 RBC/hpf (0-5); URINE SQUAMOUS EPITHELIAL CELL FEW EPI/hpf (0-FEW); URINE WBC 0-2 WBC/hpf (0-5)
[2024-01-14 17:35] LABS: ALBUMIN 4.7 g/dL (3.2-5.0); BILIRUBIN, TOTAL 0.7 mg/dL (0.02-1.3); CREATININE 0.7 mg/dL (0.5-1.0); TOTAL PROTEIN 8.7 g/dL (6.3-8.2)
[2024-01-14 17:37] LABS: POTASSIUM 3.8 mmol/l (3.5-5.1)
[2024-01-14] MEDS ORDERED: ZPAK PO (18:39)
[2024-01-14 20:12] VITALS: BP 178/98
== END 2024-01-14 20:13 | disposition home or self-care (01) | DRG 153 ==
LOC: ED 16:10
PROVIDERS: Family Medicine
DX: J06.9 Acute upper respiratory infection, unspecified (principal); Z20.822 Contact with and (suspected) exposure to COVID-19